=== PATIENT | male | born 2000 | race Caucasian/White ===

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

== ENCOUNTER → 2024-06-19 | Outpatient (CLI) | payer OTHER | END | disposition home or self-care (01) | LOC: TELEHEALTH 08:11 | PROVIDERS: ATTEND Neurological Surgery | DX: R20.0 Anesthesia of skin (principal); M25.512 Pain in left shoulder; R22.32 Localized swelling, mass and lump, left upper limb; Z87.828 Personal history of other (healed) physical injury and trauma ==

== ENCOUNTER 2024-12-08 11:50 | Emergency (ER) | payer OTHER ==
[~2024-12-08] VITALS: Ht 167.6 cm; Wt 70.5 kg
[2024-12-08 12:06] VITALS: TEMP 98
[2024-12-08] MEDS ORDERED: BUPR1TAB46 SL (12:09)
[2024-12-08] MEDS ORDERED: MIRT-89 PO (12:09)
[2024-12-08] MEDS ORDERED: ACET650S24 PR (12:09)
[2024-12-08] MEDS ORDERED: ACET-2247 PO (12:39)
[2024-12-08] MEDS: ACETAMINOPHEN 325 MG TABLET PO ONE (13:33)
[2024-12-08 15:10] LABS: BASOPHILS % (AUTO) 0.5 % (0.0-2.0); EOSINOPHILS % (AUTO) 0.2 % (1.0-6.0); HEMATOCRIT 43.8 % (41-53); HEMOGLOBIN 15.1 g/dL (13.5-17.5); LYMPHOCYTES # (AUTO) 2.4 K/uL (1.0-4.8); LYMPHOCYTES % (AUTO) 26.8 % (22.0-44.0); MEAN CORPUSCULAR HEMOGLOBIN 30.4 pg (26.0-34.0); MEAN CORPUSCULAR HGB CONC 34.5 G/dL (31.0-37.0); MEAN CORPUSCULAR VOLUME 88 fL (80-100); MONOCYTES # (AUTO) 0.6 K/uL (0.1-1.0); MONOCYTES % (AUTO) 6.7 % (2.0-9.0); NEUTROPHILS # (AUTO) 5.9 K/uL (1.8-7.7); NEUTROPHILS % (AUTO) 65.8 % (40.0-70.0); PLATELET COUNT (AUTO) 285 K/uL (150-450); RED BLOOD CELL COUNT(AUTO) 4.96 MIL/uL (4.50-5.90); RED CELL DISTRIBUTION WIDTH 14.1 % (11.5-14.5)
[2024-12-08 15:18] LABS: ANION GAP 8 mmol/L (8-16); CALCIUM, TOTAL 9.1 mg/dL (8.8-10.5); CARBON DIOXIDE 28 mmol/L (22-29); CHLORIDE 103 mmol/L (98-107); CREATININE 0.82 mg/dL (0.60-1.30); GLOMERULAR FILTR. RATE CALC > 60 mL/min (>60); GLUCOSE,RANDOM 97 mg/dL (70-110); POTASSIUM 3.7 mmol/L (3.5-5.1); SODIUM SERUM 139 mmol/L (136-145); UREA NITROGEN, BLOOD 10 mg/dL (7-18)
[2024-12-08] MEDS: CEPHALEXIN MONOHYDRATE 500 MG CAPSULE PO ONE (15:30)
[2024-12-08 15:33] VITALS: BP 118/63; PULSE 95; RESP 16; O2SAT 97
== END 2024-12-08 15:50 ==
LOC: EMS 12:37
DX: S01.01XA Laceration without foreign body of scalp, initial encounter (principal); R51.9 Headache, unspecified; Z86.15 Personal history of latent tuberculosis infection; Y04.0XXA Assault by unarmed brawl or fight, initial encounter; Y93.89 Activity, other specified; Y92.89 Other specified places as the place of occurrence of the external cause; Y99.8 Other external cause status
CPT/HCPCS: 12001; 70450; 80048; 85025; 99284